=== PATIENT | female | born 2000 | race Hispanic/Latino ===

== ENCOUNTER 2020-12-01 14:34 | Emergency (ER) | payer MEDICAID ==
[~2020-12-01] VITALS: Ht 154.9 cm; Wt 105.2 kg
[2020-12-01] MEDS ORDERED: ACETAMINOPHEN 325 MG TAB PO ONE ×2 (14:35→15:00)
[2020-12-01] MEDS ORDERED: PREDNISONE 20 MG TABLET PO ONE (14:35)
[2020-12-01 14:50] VITALS: BP 112/61
[2020-12-01] MEDS ORDERED: PREDNISONE 20 MG TABLET PO SCH (15:00)
[2020-12-01] MEDS ORDERED: PRED20TA3 PO (16:46)
== END 2020-12-01 17:01 | disposition home or self-care (01) ==
LOC: EDH 14:34
DX: M54.12 Radiculopathy, cervical region (principal); E66.9 Obesity, unspecified; Z79.899 Other long term (current) drug therapy; Z68.41 Body mass index [BMI] 40.0-44.9, adult
CPT/HCPCS: 72125; 81025